=== PATIENT | female | born 1970 | race Caucasian/White ===

== ENCOUNTER 2018-06-17 19:04 | Emergency (ER) | payer OTHER ==
[~2018-06-17] VITALS: Ht 152.4 cm; Wt 77.1 kg
[2018-06-17] MEDS ORDERED: MEDROLDOSEPACK PO (22:04)
[2018-06-17] MEDS ORDERED: ROBAXIN 750 MG750 M1 PO (22:04)
[2018-06-17] MEDS ORDERED: NORCO 5-325 TA1 EACH PO (22:04)
[2018-06-17 22:15] VITALS: BP 142/83
== END 2018-06-17 22:15 | disposition home or self-care (01) ==
LOC: M.ERS 19:04
DX: M54.2 Cervicalgia (principal); M54.6 Pain in thoracic spine; Z90.49 Acquired absence of other specified parts of digestive tract

== ENCOUNTER 2020-03-10 10:25 | Emergency (ER) | payer OTHER ==
[~2020-03-10] VITALS: Ht 157.5 cm; Wt 68.0 kg
[~2020-03-10 10:25] MED LIST: MEDROLDOSEPACK PO; NORCO 5-325 TA1 EACH PO; ROBAXIN 750 MG750 M1 PO
[2020-03-10] MEDS ORDERED: KEFLEX500 M1 PO (12:36)
[2020-03-10 12:44] VITALS: BP 133/88
== END 2020-03-10 12:44 | disposition home or self-care (01) ==
LOC: M.ERS 10:25
DX: S61.217A Laceration without foreign body of left little finger without damage to nail, initial encounter (principal); Z90.49 Acquired absence of other specified parts of digestive tract; W26.0XXA Contact with knife, initial encounter; Y93.89 Activity, other specified; Y92.89 Other specified places as the place of occurrence of the external cause; Y99.8 Other external cause status

== ENCOUNTER 2020-03-20 09:38 | Emergency (ER) | payer OTHER ==
[~2020-03-20] VITALS: Ht 157.5 cm; Wt 59.0 kg
[~2020-03-20 09:38] MED LIST changes: +KEFLEX500 M1 PO
[2020-03-20 10:44] VITALS: BP 134/73
== END 2020-03-20 10:45 | disposition home or self-care (01) ==
LOC: M.ERS 09:38
DX: S61.217D Laceration without foreign body of left little finger without damage to nail, subsequent encounter (principal); Z48.02 Encounter for removal of sutures; Z90.49 Acquired absence of other specified parts of digestive tract; X58.XXXD Exposure to other specified factors, subsequent encounter

== ENCOUNTER 2020-04-28 22:54 | Inpatient (IN) | payer OTHER ==
[~2020-04-28] VITALS: Ht 157.5 cm; Wt 70.2 kg
[2020-04-28 23:05] VITALS: BP 144/62
[2020-04-28 23:10] LABS: URINE BILIRUBIN NEGATIVE (Negative); URINE BLOOD 3+ (Negative); URINE CLARITY CLEAR; URINE COLOR YELLOW; URINE GLUCOSE-RANDOM 3+ (Negative); URINE LEUKOCYTES-REFLEX NEGATIVE (Negative); URINE NITRITE-REFLEX NEGATIVE (Negative); URINE PROTEIN 2+ (Negative)
[2020-04-28 23:11] LABS: URINE KETONES 3+ (Negative)
[2020-04-28 23:26] LABS: SQUAMOUS 0-3 Few /LPF (0-3); URINE WBC-REFLEX >25 Many /HPF (0-5); WBC CLUMPS Moderate (None Seen)
[2020-04-28 23:27] LABS: BACTERIA-REFLEX >30 Many /HPF (None Seen); CASTS None Seen /LPF (None Seen); CRYSTALS None Seen /LPF (None Seen); MUCUS 0-3 Light strn/LPF (None Seen)
[2020-04-28 23:47] LABS: ABSOLUTE MONOCYTES 0.6 thou/uL (0.0-1.2); ABSOLUTE NEUTROPHILS 7.7 thou/uL (1.6-8.1); BASOPHILS 0.4 %; HEMOGLOBIN 13.5 gm/dL (12.0-15.0); LYMPHOCYTES 10.3 %; MCHC 35.4 g/dL (28.0-37.0); MCV 87.5 fL (80.0-100.0); MONOCYTES 6.3 %; MPV 9.5 fl. (7.2-11.1); NUCLEATED RBCS 0 /100WBC; PLATELET COUNT* 125 thou/uL (150-400); RBC 4.35 mil/uL (4.20-5.00); RDW-CV 12.6 % (10.5-14.5); WBC 9.3 thou/uL (4.0-11.0)
[2020-04-28 23:49] LABS: CALCIUM 8.3 mg/dL (8.5-10.1); CREATININE 0.7 mg/dL (0.6-1.3); POTASSIUM 3.1 mmol/L (3.5-5.1)
[2020-04-28 23:53] LABS: ALBUMIN 3.3 g/dL (3.4-5.0); MAGNESIUM 1.4 mg/dL (1.8-2.4); TOTAL BILIRUBIN 0.7 mg/dL (<0.1-1.0); TOTAL PROTEIN 7.5 g/dL (6.4-8.2)
--- NOTE | 2020-04-29 01:16 | NUR ---
MATY NOTIFIED OF PT RETURN AND IN HIS CARE 0110
[2020-04-29 02:47] VITALS: BP 142/61
[2020-04-29 03:15] VITALS: BP 114/65
[2020-04-29 08:04] VITALS: BP 116/71
[2020-04-29 09:55] LABS: ABSOLUTE LYMPHOCYTES 0.6 thou/uL (0.8-5.3); ABSOLUTE MONOCYTES 0.5 thou/uL (0.0-1.2); ABSOLUTE NEUTROPHILS 6.7 thou/uL (1.6-8.1); BASOPHILS 0.2 %; HEMATOCRIT 35.4 % (37.0-47.0); HEMOGLOBIN 12.5 gm/dL (12.0-15.0); LYMPHOCYTES 7.8 %; MCH 31.2 pg (26.0-34.0); MCHC 35.2 g/dL (28.0-37.0); MCV 88.6 fL (80.0-100.0); MONOCYTES 6.4 %; MPV 9.4 fl. (7.2-11.1); NUCLEATED RBCS 0 /100WBC; PLATELET COUNT* 109 thou/uL (150-400); POLYS 85.6 %; RDW-CV 12.7 % (10.5-14.5); WBC 7.8 thou/uL (4.0-11.0)
[2020-04-29 10:08] LABS: ALBUMIN 2.5 g/dL (3.4-5.0); CALCIUM 7.9 mg/dL (8.5-10.1); CREATININE 0.5 mg/dL (0.6-1.3); POTASSIUM 3.4 mmol/L (3.5-5.1); TOTAL BILIRUBIN 0.6 mg/dL (<0.1-1.0); TOTAL PROTEIN 6.5 g/dL (6.4-8.2)
--- NOTE | 2020-04-29 10:17 | EKG ---
[place] [address] ELECTROCARDIOGRAM REPORT Name: HANNAH HARVEY Room: [address] ADM IN .R.#: [id number] Admission: 04/29/20 Attend Phys: Clara Ventura, Discharge: Date of : 70 Date of Service: 04/28/20 [facility] Report #: [id number] THIS REPORT FOR: //name// [facility] ED Test Date: 2020-04-28 Test Time: 23:11:32 Pat Name: HANNAH HARVEY Department: Room: [facility] Gender: F Roofing Contractor: PAULA : 1970 Requested By: Tasha Summers Order Number: [id number] MD: Yuriy Puckett Measurements Intervals [place] Rate: 109 P: 21 WV: 141 QRS: 17 QRSD: 93 T: -1 QT: 328 QTc: 442 Interpretive Statements Sinus tachycardia Nondiagnostic inferior Q waves Minor intraventricular conduction delay No previous ECG available for comparison Electronically Signed On 04-29-2020 10:16:59 SPINE SUPERVISOR by Yuriy Puckett [email or web address] <ELECTRONICALLY SIGNED> By: Yuriy Puckett MD, FACC 04/29/20 1016 [id number] Yuriy Puckett MD, FAC /EPI
--- NOTE | 2020-04-29 13:10 | NUR ---
Pt is A&O, primarily speaks khmer, but able to answer CM's questions. Pt resides at home with her dtr. Independent, works. No DME. No hx of HH or SNF. Goal is home at mo. Pending urine cultures. Elevated BS, monitor. Following.
--- NOTE | 2020-04-29 16:41 | NUR ---
IVF INFUSING. ACCU CHECK WITH SSI ORDERED. TYLENOL GIVEN FOR T 102.8. DAUGHTER AT BEDSIDE.
[2020-04-29 16:43] VITALS: BP 117/48
[2020-04-29 20:00] VITALS: BP 104/56
[2020-04-30] VITALS (7 sets, daily range): BP systolic 86–121; BP diastolic 41–56
[2020-04-30 07:53] LABS: ABSOLUTE MONOCYTES 0.3 thou/uL (0.0-1.2); ABSOLUTE NEUTROPHILS 3.4 thou/uL (1.6-8.1); BASOPHILS 0.6 %; HEMATOCRIT 37.9 % (37.0-47.0); HEMOGLOBIN 12.9 gm/dL (12.0-15.0); LYMPHOCYTES 20.3 %; MCH 30.3 pg (26.0-34.0); MCHC 34.1 g/dL (28.0-37.0); MCV 88.9 fL (80.0-100.0); MONOCYTES 6.6 %; MPV 9.6 fl. (7.2-11.1); NUCLEATED RBCS 0 /100WBC; PLATELET COUNT* 113 thou/uL (150-400); POLYS 72.5 %; RBC 4.26 mil/uL (4.20-5.00); RDW-CV 12.7 % (10.5-14.5); WBC 4.7 thou/uL (4.0-11.0)
[2020-04-30 08:10] LABS: ALBUMIN 2.3 g/dL (3.4-5.0); CALCIUM 8.2 mg/dL (8.5-10.1); CREATININE 0.6 mg/dL (0.6-1.3); TOTAL BILIRUBIN 0.5 mg/dL (<0.1-1.0); TOTAL PROTEIN 6.3 g/dL (6.4-8.2)
[2020-04-30 10:34] LABS: PHOSPHORUS* 1.9 mg/dL (2.5-4.9)
--- NOTE | 2020-04-30 14:20 | NUR ---
Febrile. Pt not eligible for [facility]. Anticipate dc in a few days.
[2020-05-01 03:06] LABS: GLYCOHEMOGLOBIN (HGB A1C) 10.9 % (4.8-5.6)
[2020-05-01 04:08] VITALS: BP 123/52
[2020-05-01 04:15] LABS: HEMATOCRIT 34.9 % (37.0-47.0); MCH 30.2 pg (26.0-34.0); MCHC 34.4 g/dL (28.0-37.0); MCV 87.7 fL (80.0-100.0); MPV 10.6 fl. (7.2-11.1); NUCLEATED RBCS 0 /100WBC; PLATELET COUNT* 110 thou/uL (150-400); RBC 3.98 mil/uL (4.20-5.00); RDW-CV 13.2 % (10.5-14.5); WBC 5.1 thou/uL (4.0-11.0)
[2020-05-01 04:28] LABS: ALBUMIN 2.2 g/dL (3.4-5.0); CALCIUM 8.2 mg/dL (8.5-10.1); CREATININE 0.4 mg/dL (0.6-1.3); MAGNESIUM 1.7 mg/dL (1.8-2.4); POTASSIUM 3.7 mmol/L (3.5-5.1); TOTAL BILIRUBIN 0.4 mg/dL (<0.1-1.0); TOTAL PROTEIN 5.8 g/dL (6.4-8.2)
[2020-05-01 06:59] LABS: ABSOLUTE LYMPHOCYTES 1.6 thou/uL (0.8-5.3); ABSOLUTE MONOCYTES 0.9 thou/uL (0.0-1.2); ABSOLUTE NEUTROPHILS 2.6 thou/uL (1.6-8.1); PLATELET ESTIMATE DECREASED
[2020-05-01 07:00] LABS: ANISOCYTOSIS 1+; POIKILOCYTOSIS 1+
[2020-05-01 08:00] VITALS: BP 118/53
[2020-05-01 11:50] VITALS: BP 117/60
--- NOTE | 2020-05-01 13:31 | NUR ---
Nurse to complete diabetes edu with Pt today. Monitor glucose. Plan dc to home tomorrow.
[2020-05-01 15:50] VITALS: BP 124/74
--- NOTE | 2020-05-01 18:30 | NUR ---
RECEIVED REPORT. ASSUMED CARE OF PT AROUND 0730. AM ASSESSMENT AND VITALS COMPLETED CHARTED. MEDS PER EMAR. PT IMPROVED OVER THE SHIFT - HAD MORE ENERGY AND WAS UP TO THE CHAIR SEVERAL TIMES. APPETITE IMPROVING. LOTS OF DIABETES EDUCATION GIVEN TODAY WITH DAUGHTER TRANSLATING. PT DID NOT WANT TO GIVE HERSELF A SHOT OF INSULIN DESPITE ENCOURAGEMENT TO DO SO. DAUGHTER DID LEARN HOW TO DO IT. FANCY SEWER IN PLACE. PT MIGHT DC TOMORROW. PT CURRENTLY RESTING IN BED. HEATING PAD USED FOR BACK PAIN WITH RELIEF. CALL LIGHT WITHIN REACH. HOURLY ROUNDING PERFORMED. LOW FALL RISK PRECAUTIONS IN PLACE.
[2020-05-01 20:00] VITALS: BP 119/41
[2020-05-02] VITALS: BP 125/62
--- NOTE | 2020-05-02 03:49 | NUR ---
PATIENT SLEPT WELL DURING THIS SHIFT. DAUGHTER AT BEDSIDE. PT SPEAKS MALTESE AND VERY LITTLE [place]SWA[place]; DAUGHTER INTERPRETS FOR HER. PT DENIES PAIN/NAUSEA. PT IS ON ROOM AIR AND SR ON MONITOR. PT UP WITH STANDBY TO BATHROOM. FLUIDS INFUSING PER DR ORDER. PT DENIES NEEDS AT THIS TIME. WILL CONTINUE TO MONITOR.
[2020-05-02 04:07] LABS: ABSOLUTE LYMPHOCYTES 2.6 thou/uL (0.8-5.3); ABSOLUTE NEUTROPHILS 3.5 thou/uL (1.6-8.1); BASOPHILS 0.7 %; EOSINOPHILS 0.2 %; HEMATOCRIT 38.5 % (37.0-47.0); HEMOGLOBIN 13.4 gm/dL (12.0-15.0); LYMPHOCYTES 36.3 %; MCH 30.3 pg (26.0-34.0); MCHC 34.7 g/dL (28.0-37.0); MCV 87.3 fL (80.0-100.0); MONOCYTES 13.6 %; NUCLEATED RBCS 0 /100WBC; PLATELET COUNT* 162 thou/uL (150-400); POLYS 49.2 %; RBC 4.41 mil/uL (4.20-5.00); RDW-CV 13.4 % (10.5-14.5); WBC 7.1 thou/uL (4.0-11.0)
[2020-05-02 04:27] LABS: ALBUMIN 2.4 g/dL (3.4-5.0); CALCIUM 8.3 mg/dL (8.5-10.1); CREATININE 0.4 mg/dL (0.6-1.3); MAGNESIUM 1.7 mg/dL (1.8-2.4); POTASSIUM 3.1 mmol/L (3.5-5.1); TOTAL BILIRUBIN 0.3 mg/dL (<0.1-1.0); TOTAL PROTEIN 6.5 g/dL (6.4-8.2)
[2020-05-02 05:22] VITALS: BP 129/50
[2020-05-02 08:24] VITALS: BP 112/61
[2020-05-02] MEDS ORDERED: LEVOFLOXACIN500 MG PO (08:45)
[2020-05-02] MEDS ORDERED: LANTUS SUBQ (08:46)
--- NOTE | 2020-05-02 09:25 | NUR ---
ASSUMED CARE OF PT THIS AM AROUND 07- PLASTER DIE MAKER IN PLACE ORDERED, TRACING SR/PVC- UPON ASSESSMENT PT NOTED TO BE RESTING IN BED, DAUGHTER AT BED SIDE- PT MOSTLY SINHALA SPEAKING, DAUGHTER ABLE TO HELP WITH COMMUNICATION- PT A&O X4- CONT OF B/B- SBA WITH TRANSFERS FOR SAFETY- LCTA, RESP EVEN AND UN-LABORED- VSS, O2 SAT 97% ON RA- ABD SOFT/ROUND, BS X4 QUADS- PT REPORTS PAIN TO ABD 07/27- LAST BM REPORTED 05/01/20- IV NOTED TO RIGHT AC INTACT AND SL, IVF NOTED TO BE D/C'D THIS AM- GOOD PO INTAKE NOTED THIS AM, BS MONIOTRED ORDERED WITH INSULIN GIVEN PRESCRIBED- PRN IBUPRPHEN GIVEN THIS AM AT 0831, PT REPORTS MEDICATION TO BE EFFECTIVE- PT MG NOTED AT 1.7, AND K+ NOTED AT 3.1, CURRENTLY BEING REPLACED PER PROTOCOL- CALL LIGHT AND PERSONAL BELONGINGS WITH IN REACH- ALL NEEDS MET AT THIS TIME-WCTM
[2020-05-02 11:10] VITALS: BP 112/61
[2020-05-02 12:04] VITALS: BP 102/55
== END 2020-05-02 12:42 | disposition home or self-care (01) | DRG 690 ==
LOC: M.ERS 22:54 → M.2W 04-29 02:07 → M.TBA-ER 04-29 02:07 → M.2W 04-29 03:33
PROVIDERS: Nurse Practitioner; Personal Emergency Response Attendant; ADMIT Internal Medicine; ATTEND Internal Medicine
DX: N12 Tubulo-interstitial nephritis, not specified as acute or chronic (principal); E87.1 Hypo-osmolality and hyponatremia; N39.0 Urinary tract infection, site not specified; E11.65 Type 2 diabetes mellitus with hyperglycemia; E87.6 Hypokalemia; E83.42 Hypomagnesemia; B96.20 Unspecified Escherichia coli [E. coli] as the cause of diseases classified elsewhere; E86.0 Dehydration; Z20.822 Contact with and (suspected) exposure to COVID-19; Z23 Encounter for immunization; Z90.49 Acquired absence of other specified parts of digestive tract; Z83.3 Family history of diabetes mellitus; Z79.899 Other long term (current) drug therapy

== ENCOUNTER 2021-06-03 18:47 | Inpatient (IN) | payer OTHER ==
[~2021-06-03] VITALS: Ht 154.9 cm; Wt 69.1 kg
[~2021-06-03 18:47] MED LIST changes: +LANTUS SUBQ; +LEVOFLOXACIN500 MG PO
[2021-06-03 19:01] VITALS: BP 128/68
[2021-06-03 19:27] LABS: URINE BLOOD 2+ (Negative); URINE CLARITY CLOUDY; URINE COLOR YELLOW; URINE GLUCOSE-RANDOM 3+ (Negative); URINE KETONES 2+ (Negative); URINE LEUKOCYTES 1+ (Negative); URINE NITRITE NEGATIVE (Negative); URINE PROTEIN 2+ (Negative); URINE SPECIFIC GRAVITY 1.015 (1.005-1.030)
[2021-06-03 19:33] LABS: URINE BILIRUBIN 1+ (Negative)
[2021-06-03 19:34] LABS: ICTOTEST (BILI CONFIRMATORY) Negative (Negative)
[2021-06-03 19:37] LABS: SQUAMOUS 4-10 Moderate /LPF (0-3); URINE RBC >20 Many /HPF (0-2)
[2021-06-03 19:38] LABS: BACTERIA 1-9 Few /HPF (None Seen); CASTS None Seen /LPF (None Seen); CRYSTALS None Seen /LPF (None Seen); MUCUS 0-3 Light strn/LPF (None Seen)
[2021-06-03 19:47] LABS: ABSOLUTE LYMPHOCYTES 0.8 thou/uL (0.8-5.3); ABSOLUTE MONOCYTES 0.9 thou/uL (0.0-1.2); ABSOLUTE NEUTROPHILS 8.6 thou/uL (1.6-8.1); BASOPHILS 0.2 %; BE -5.4 mmol/L (-2 to +3); EOSINOPHILS 0.1 %; HEMATOCRIT 43.4 % (37.0-47.0); HEMOGLOBIN 14.9 gm/dL (12.0-15.0); LYMPHOCYTES 7.7 %; MCH 30.6 pg (26.0-34.0); MCHC 34.2 g/dL (28.0-37.0); MCV 89.3 fL (80.0-100.0); MONOCYTES 8.7 %; MPV 9.5 fl. (7.2-11.1); NUCLEATED RBCS 0 /100WBC; PCO2 VENOUS 24.8 mmHg (41.0-51.0); PLATELET COUNT* 128 thou/uL (150-400); PO2 VENOUS 157.4 mmHg (35.0-45.0); POLYS 83.3 %; RBC 4.86 mil/uL (4.20-5.00); RDW-CV 12.6 % (10.5-14.5); WBC 10.3 thou/uL (4.0-11.0)
[2021-06-03 20:12] LABS: POTASSIUM 4.2 mmol/L (3.5-5.1)
[2021-06-03 20:13] LABS: MAGNESIUM 1.7 mg/dL (1.8-2.4); TOTAL BILIRUBIN 0.7 mg/dL (<0.1-1.0); TOTAL PROTEIN 6.8 g/dL (6.4-8.2)
[2021-06-03 22:01] VITALS: BP 129/73
[2021-06-03 22:15] VITALS: BP 146/60
[2021-06-04] VITALS: BP 113/54
[2021-06-04 04:00] VITALS: BP 104/55
--- NOTE | 2021-06-04 10:01 | EKG ---
[place] [address] ELECTROCARDIOGRAM REPORT Name: MAUDE HARVEYBELASHA Sherman Room: [address] ADM IN R.#: [id number] Admission: 06/03/21 Attend Phys: Fernando Cho Discharge: Date of : 70 Date of Service: 06/03/211923 Report #: [id number] THIS REPORT FOR: //name// [facility] ED Test Date: 2021-06-03 Test Time: 19:24:58 Pat Name: HANNAH HARVEY Department: Room: [facility] Gender: F Manager Quality Improvement: : 1970 Requested By: Fahad Mitchell Order Number: [id number] MD: Wild Levi Measurements Intervals [place] Rate: 96 P: 49 ND: 138 QRS: 46 QRSD: 95 T: 21 QT: 359 QTc: 454 Interpretive Statements Sinus rhythm Compared to ECG 04/28/2020 23:11:32 Sinus tachycardia no longer present Intraventricular conduction delay no longer present Electronically Signed On 06-04-2021 10:01:09 PART TIME RECEPTIONIST by Wild Levi [email or web address] <ELECTRONICALLY SIGNED> By: Wild Levi MD, [facility] 06/04/21 1001 23 23 Wild Levi MD, [facility] /EPI
[2021-06-04 16:15] LABS: INFLUENZA A ANTIGEN Negative (Negative); INFLUENZA B ANTIGEN Negative (Negative)
[2021-06-04 17:27] VITALS: BP 108/50
[2021-06-04 21:00] VITALS: BP 109/57
[2021-06-05 00:37] VITALS: BP 103/47
[2021-06-05 04:00] VITALS: BP 122/49
[2021-06-05 04:36] LABS: ABSOLUTE LYMPHOCYTES 1.2 thou/uL (0.8-5.3); ABSOLUTE MONOCYTES 0.8 thou/uL (0.0-1.2); ABSOLUTE NEUTROPHILS 6.1 thou/uL (1.6-8.1); BASOPHILS 0.4 %; EOSINOPHILS 0.1 %; HEMATOCRIT 37.9 % (37.0-47.0); HEMOGLOBIN 13.4 gm/dL (12.0-15.0); MCH 30.3 pg (26.0-34.0); MCHC 35.3 g/dL (28.0-37.0); MONOCYTES 9.6 %; MPV 10.7 fl. (7.2-11.1); NUCLEATED RBCS 0 /100WBC; PLATELET COUNT* 112 thou/uL (150-400); POLYS 74.9 %; RBC 4.41 mil/uL (4.20-5.00); RDW-CV 12.8 % (10.5-14.5); WBC 8.2 thou/uL (4.0-11.0)
[2021-06-05 05:13] LABS: CALCIUM 7.9 mg/dL (8.5-10.1); CREATININE 0.4 mg/dL (0.6-1.3)
[2021-06-05 05:46] LABS: POTASSIUM 2.8 mmol/L (3.5-5.1)
[2021-06-05 07:08] LABS: GLYCOHEMOGLOBIN (HGB A1C) 12.2 % (4.8-5.6)
[2021-06-05 07:20] VITALS: BP 104/44
[2021-06-05 11:30] VITALS: BP 94/41
[2021-06-05 16:30] VITALS: BP 111/60
[2021-06-05 20:00] VITALS: BP 108/46
[2021-06-06 00:20] VITALS: BP 100/51
[2021-06-06 04:56] VITALS: BP 107/61
[2021-06-06 07:53] VITALS: BP 99/54
[2021-06-06 11:40] VITALS: BP 97/60
[2021-06-06] MEDS ORDERED: HUMULIN R100 UNIT/1 SUBQ (12:49)
[2021-06-06] MEDS ORDERED: NOVOLIN N100 UNIT/3 SUBQ (12:49)
[2021-06-06] MEDS ORDERED: CEFUROXIME500 MG PO (12:51)
[2021-06-06 14:01] VITALS: BP 97/60
== END 2021-06-06 15:18 | disposition home or self-care (01) | DRG 871 ==
LOC: M.ERS 18:47 → M.TBA-ER 20:39 → M.2W 22:29 → M.ORTHSURG 06-04 20:15
PROVIDERS: Internal Medicine; Physician Assistant; ADMIT Internal Medicine; ATTEND Internal Medicine
DX: A41.50 Gram-negative sepsis, unspecified (principal); E11.00 Type 2 diabetes mellitus with hyperosmolarity without nonketotic hyperglycemic-hyperosmolar coma (NKHHC); N30.01 Acute cystitis with hematuria; N17.9 Acute kidney failure, unspecified; R65.10 Systemic inflammatory response syndrome (SIRS) of non-infectious origin without acute organ dysfunction; D69.6 Thrombocytopenia, unspecified; E86.0 Dehydration; E11.65 Type 2 diabetes mellitus with hyperglycemia; Z20.822 Contact with and (suspected) exposure to COVID-19; Z79.4 Long term (current) use of insulin; Z91.19 Patient's noncompliance with other medical treatment and regimen